=== PATIENT | male | born 1985 | race Caucasian/White ===

== ENCOUNTER 2022-11-23 13:01 | Emergency (ER) | payer BC, SELFPAY ==
[2022-11-23 13:13] VITALS: BP 125/81; PULSE 58; RESP 16; TEMP 36.7; O2SAT 99
--- NOTE | 2022-11-23 13:33 | ED.URI ---
HPI - URI/Sore Throat General Chief Complaint: Upper Respiratory Infection Stated Complaint: Runny Nose,Headache,Rt Eye Irritation Time Seen by Provider: 11/23/22 13:27 Source: patient and RN notes reviewed Mode of arrival: ambulatory Limitations: no limitations History of Present Illness HPI Narrative: Patient presents today with a 2 week history of nasal congestion, sore throat in the mornings, rhinorrhea, sneezing, occasional headache, and mild cough. States that this morning his right eye started draining hand was matted. Denies shortness of breath. Denies history of asthma or COPD. He has been taking Emergen-C without relief. He is a nonsmoker. States 2 children at home had similar symptoms last week. Related Data Allergies Allergy/AdvReac Type Severity Reaction Status Date / Time No Known Allergies Allergy Verified 11/23/22 13:11 Review of Systems Review of Systems: CONSTITUTIONAL: Denies body aches, fever, chills, or sweats. EYES: Denies visual changes, redness, or discharge. ENT: Denies otalgia.+ sore throat, congestion, rhinorrhea, sneezing CARDIOVASCULAR: Denies chest pain, palpitations, or edema. RESPIRATORY: Denies dyspnea.+ cough GASTROINTESTINAL: Denies abdominal pain, nausea, vomiting, or diarrhea. GENITOURINARY: Denies dysuria or hematuria. SKIN: Denies rash, itching, or wounds. MUSCULOSKELETAL: Denies back pain, joint pain, or myalgia. NEUROLOGIC: Denies numbness, tingling, or weakness.+ headache PSYCH: Denies depression or anxiety. PMFSH Comments At time of signature, I have reviewed and agree with nursing past medical, surgical, social and family history unless otherwise noted. Please see nursing chart for further information. There is no relevant family history pertinent to the presenting complaint Exam Narrative: GENERAL: Well-appearing, well-nourished, and in no acute distress. HEAD: Normocephalic, atraumatic. EYES: EOMI. PERRL. Left eye normal. Right eye injected with matted eyelashes. Lids normal. ENT: Mucous membranes pink and moist. Nares congested with rhinorrhea. TMs normal bilaterally. Throat normal. Uvula midline. NECK: Normal AROM. Supple. No lymphadenopathy. CHEST: No respiratory distress. Clear to auscultation. HEART: Regular rate and rhythm. No murmur appreciated. Normal peripheral pulses. EXTREMITIES: Normal range of motion. No edema. SKIN: Warm, dry, no rash. Capillary refill normal. Normal skin turgor. NEURO: No focal deficits. Alert and oriented x3. Gait steady. PSYCH: Normal affect. No signs of depression or anxiety. Course Course Level of Care: Express Care Visit Vital Signs Vital signs: Vital Signs Temperature 98.0 F 11/23/22 13:13 Pulse Rate 58 L 11/23/22 13:13 Respiratory Rate 16 11/23/22 13:13 Blood Pressure 125/81 11/23/22 13:13 Pulse Oximetry 99 11/23/22 13:13 Oxygen Delivery Room Air 11/23/22 13:13 Temperature 98.0 F 11/23/22 13:13 Pulse Rate 58 L 11/23/22 13:13 Respiratory Rate 16 11/23/22 13:13 Blood Pressure 125/81 11/23/22 13:13 Pulse Oximetry 99 11/23/22 13:13 Oxygen Delivery Room Air 11/23/22 13:13 Reviewed. Pt has been instructed to follow up with his PCP regarding his elevated blood pressure today. MDM - URI/Sore Throat MDM Narrative Medical decision making narrative: Symptoms consistent with bacterial conjunctivitis and bacterial sinusitis. Will treat with Augmentin and ofloxacin. Anticipatory guidance given. Differential Diagnosis Differential diagnosis: Likely upper respiratory infection, sinusitis, viral infection and other (Pneumonia, conjunctivitis) Critical Care Time Critical Care Time Critical Care Time: No Discharge Plan Discharge Clinical Impression: Acute bacterial conjunctivitis of right eye, Acute bacterial sinusitis Patient Disposition: Home, Self-Care Condition: Stable Instructions: Antibiotic Form, Sinusitis (ED), Conjunctivitis (ED) Additional Ins
== END 2022-11-23 13:40 | disposition home or self-care (01) ==
PROVIDERS: Emergency Provider Nurse Practitioner
DX: H10.31 Unspecified acute conjunctivitis, right eye (principal); J01.90 Acute sinusitis, unspecified; Z86.16 Personal history of COVID-19
CPT/HCPCS: 99203; G0463